=== PATIENT | female | born 1930 | race Caucasian/White ===

== ENCOUNTER 2017-03-24 12:31 | Emergency (ER) | payer OTHER, MEDICARE ==
[~2017-03-24] VITALS: Ht 170.2 cm; Wt 70.3 kg
--- NOTE | ~2017-03-24 | EKG ---
[place] [address] [facility] [email or web address] [address] ELECTROCARDIOGRAM REPORT Name: MILY LEONARD [facility] [id number] Admission: 03/24/17 Attend Phys: Discharge: 03/24/17 Date of : 32 Report #: [id number] THIS REPORT FOR: //name// [facility] ED Test Date: 2017-03-24 Test Time: 12:35:50 Pat Name: MILY LEONARD Department: Room: Gender: F Geography Professor: CAMILA : 1930 Requested By: Alysha Waldrop Order Number: [id number] MD: Davian Boswell Measurements Intervals [place] Rate: 66 P: 16 WV: 191 QRS: -16 QRSD: 87 T: 9 QT: 424 QTc: 445 Interpretive Statements Sinus rhythm Probable left atrial enlargement Borderline left axis deviation Compared to ECG 07/30/2013 21:05:50 Ventricular-paced complex(es) or rhythm no longer present Electronically Signed On 03-24-2017 16:00:11 CDT by Davian Boswell [email or web address] <ELECTRONICALLY SIGNED> By: Davian Boswell MD 03/24/17 1600 1235 123 Davian Boswell MD /[email or web address]
[~2017-03-24 12:31] MED LIST: ALAVERT10 MG PO; ALENDRONATE; ALTACE10 M1 PO; ARIMIDEX PO; ASPIRIN EC81 M1 PO; ASPIRIN81 M2 PO; ATENOLOL 25 MG25 M1 PO; C-10001000 M1 PO; CALCIUM 600 +1 EAC1 PO; CALCIUM 600 +1 EAC7 PO; COMBIGAN EYE DR10 ML OP; FISH OIL 1,0001 EAC5 PO; FOLIC ACID 40400 MC1 PO; FOSAMAX 70 MG T70 M1 PO; HYDROCODON-ACE1 EAC7 PO; IRON159 MG PO; IRON325 PO; KEPPRA250 MG PO; LEVOXYL50 MCG PO; MECLIZINE HCL25 M1 PO; MULTIVITAMINS1 EAC7 PO; NORCO 5-325 TA1 EACH PO; PERCOCET 5-3251 EACH; POTASSIUM99 M1 PO; RESTASIS1 EACH OPHTHALMIC; SIMVASTATIN40 MG PO; SPIRIVA INH; TIMOLOL GL0.5 %/5 M1 OPHTHALMIC; TRAVATAN 0.004%5 ML OP; TRAVATAN 0.004%5 ML OPHTHALMIC; VIBRAMYCIN100 MG PO; VITAMIN D1000 UNI1 PO; VITAMIN E1000 UNI3 PO; VITCB500GO PO; ZINC CHELATE50 MG PO; ZINC10 MG PO; ZOFRAN4 MG PO
[2017-03-24] MEDS ORDERED: ALTACE10 MG PO (12:51)
[2017-03-24 12:58] LABS: ABSOLUTE NEUTROPHILS 4.4 thou/uL (1.4-8.2); BASOPHILS 0.4 % (0.0-2.0); EOSINOPHILS 0.5 % (0.0-3.0); HEMATOCRIT 44.8 % (37.0-47.0); HEMOGLOBIN 15.5 gm/dL (12.0-15.0); LYMPHOCYTES 18.2 % (24.0-44.0); MCH 32.6 pg (26.0-34.0); MCHC 34.6 g/dL (28.0-37.0); MCV 94.5 fL (80.0-100.0); MONOCYTES 7.1 % (1.0-8.0); PLATELET COUNT 213 thou/uL (150-400); POLYS 73.8 % (36.0-66.0); RBC 4.75 mil/uL (4.20-5.00); RDW 12.8 % (10.5-14.5); WBC 5.9 thou/uL (4.0-11.0)
[2017-03-24 13:00] LABS: MANUAL DIFF NO
[2017-03-24 13:07] LABS: ANION GAP 7 mmol/L (7-16); BUN 9 mg/dL (7-18); CALCIUM 9.2 mg/dL (8.5-10.1); CHLORIDE 95 mmol/L (98-107); CO2 27 mmol/L (21-32); CREATININE 0.6 mg/dL (0.6-1.0); GLUCOSE 121 mg/dL (74-106); POTASSIUM 4.6 mmol/L (3.5-5.1); SODIUM 129 mmol/L (136-145)
[2017-03-24 13:15] LABS: TROPONIN-I < 0.04 ng/mL (<0.04-0.07)
[2017-03-24 13:38] VITALS: BP 161/74
== END 2017-03-24 13:38 | disposition home or self-care (01) ==
LOC: ER 12:31
PROVIDERS: Emergency Medicine
DX: R55 Syncope and collapse (principal); R56.9 Unspecified convulsions; J44.9 Chronic obstructive pulmonary disease, unspecified; E03.9 Hypothyroidism, unspecified; I10 Essential (primary) hypertension; E78.00 Pure hypercholesterolemia, unspecified; Z95.0 Presence of cardiac pacemaker; Z96.643 Presence of artificial hip joint, bilateral; Z85.3 Personal history of malignant neoplasm of breast; Z88.7 Allergy status to serum and vaccine

== ENCOUNTER → 2018-04-13 | Outpatient (CLI) | payer OTHER, MEDICARE ==
[~2018-04-13] MED LIST changes: +ALTACE10 MG PO
== END ==
LOC: RAD 09:57
DX: R06.00 Dyspnea, unspecified (principal)

== ENCOUNTER → 2019-08-16 | Outpatient (CLI) | payer OTHER, MEDICARE | LOC: RAD 08:02 | DX: J44.9 Chronic obstructive pulmonary disease, unspecified (principal); Z95.0 Presence of cardiac pacemaker ==

== ENCOUNTER → 2020-11-28 | Outpatient (CLI) | payer OTHER, MEDICARE | LOC: RAD 11:25 | PROVIDERS: ATTEND Internal Medicine | DX: J92.9 Pleural plaque without asbestos (principal); J44.9 Chronic obstructive pulmonary disease, unspecified ==

== ENCOUNTER → 2020-11-28 | Outpatient (CLI) | payer OTHER, MEDICARE | LOC: SJCVC 10:24 | PROVIDERS: ATTEND Internal Medicine Cardiovascular Disease | DX: R94.31 Abnormal electrocardiogram [ECG] [EKG] (principal); I48.0 Paroxysmal atrial fibrillation; I10 Essential (primary) hypertension; E78.00 Pure hypercholesterolemia, unspecified; J44.9 Chronic obstructive pulmonary disease, unspecified; E78.5 Hyperlipidemia, unspecified; G40.909 Epilepsy, unspecified, not intractable, without status epilepticus; Z87.898 Personal history of other specified conditions; Z95.0 Presence of cardiac pacemaker; Z85.3 Personal history of malignant neoplasm of breast; Z79.899 Other long term (current) drug therapy; Z72.89 Other problems related to lifestyle; Z88.7 Allergy status to serum and vaccine ==